=== PATIENT | male | born 1990 | race Caucasian/White ===

== ENCOUNTER 2017-03-02 11:09 | Inpatient (IN) | payer MEDICAID ==
[~2017-03-02] VITALS: Ht 165.1 cm; Wt 72.6 kg
[2017-03-02 11:11] VITALS: BP 148/94
--- NOTE | 2017-03-02 11:15 | NUR ---
PATIENT BIB FAMILY WITH C/O ALOC, ATE [employer] FOOD YESTERDAY ALOC WITH N/V/D, SMOKE WEED PER PT LAST WEEK THURSDAY;RX; TYLENOL . PT STAES HE FEELS WEAK.BILATERAL ARM MILD WEAKNESS;PT C/O OF THROAT/ABDOMINAL PAIN/HEADACHE;SKIN IS PINK/WARM/DRY; AAOX4 WITH EVEN AND STEADY GAIT; LUNGS CLEAR BL; HR EVEN AND REGULAR; PT DENIES ANY FEVER, CP, SOB, OR COUGH AT THIS TIME; PATIENT STATES PAIN OF 9/10 AT THIS TIME;PATIENT POSITIONED FOR COMFORT; HOB ELEVATED; BEDRAILS UP X2; BED DOWN. ALL MONITORS IN PLACED;
[2017-03-02 12:05] LABS: HEMATOCRIT 44.8 % (36-52); HEMOGLOBIN 15.3 g/dL (12.0-18.0); MEAN CORPUSCULAR HEMOGLOBIN 30 pg (27-31); MEAN CORPUSCULAR HGB CONC 34 g/dL (33-37); MEAN CORPUSCULAR VOLUME 88 fL (80-94); PLATELET COUNT (AUTO) 414 K/uL (140-450); RED BLOOD CELL COUNT(AUTO) 5.08 MIL/uL (4.20-6.10); RED CELL DISTRIBUTION WIDTH 12.4 % (11.6-13.7); WHITE BLOOD COUNT (AUTO) 29.1 K/uL (4.8-10.8)
[2017-03-02 12:07] LABS: ACETAMINOPHEN 0.8 ug/ml (10-30); ALANINE AMINOTRANSFERASE 58 U/L (12-78); ALKALINE PHOSPHATASE 114 U/L (46-116); ANION GAP 13.9 (8-16); ASPARTATE AMINOTRANSFERASE 17 U/L (15-37); CARBON DIOXIDE 28.4 mmol/L (21-32); CHLORIDE 102 mmol/L (98-107); CREATININE 1.1 mg/dL (0.6-1.3); GFR ARICAN-AMERICAN 106 mL/min (>90); GFR NON ARICAN-AMERICAN 87 mL/min (>90); GLUCOSE 122 mg/dL (74-106); POTASSIUM 3.3 mmol/L (3.5-5.1); SODIUM SERUM 141 mmol/L (136-145); TOTAL BILIRUBIN 1.2 mg/dL (0.0-1.0); TOTAL PROTEIN, SERUM 8.4 g/dL (6.4-8.2); UREA NITROGEN, BLOOD 8 mg/dL (7-18)
[2017-03-02 12:16] LABS: ALCOHOL, BLOOD < 3 mg/dL (<3); SALICYLATE < 2.8 mg/dL (2.8-20.0)
--- NOTE | 2017-03-02 12:26 | NUR ---
ASKED PT IF HE CAN A URINE SAMPLE;BUT PT STATES HE'S NOT ABLE AT THIS MOMENT.
[2017-03-02 12:36] LABS: BAND % (MANUAL) 16 % (0-8); LYMPHOCYTES % (MANUAL) 7 % (20-46); MONOCYTES % (MANUAL) 6 % (5-12); NEUTROPHILS % (MANUAL) 71 (43-65)
--- NOTE | 2017-03-02 13:10 | NUR ---
PATIENT HAVING CHILLS.TEMP. CHECKED 102.3 ORALLY.ERMD MADE AWARE
[2017-03-02] MEDS ORDERED: ACETAMINOPHEN EXTRA STRENGTH 500 MG TAB PO ONE (13:15)
[2017-03-02 14:13] LABS: AMPHETAMINE, URINE NEG. ng/ml (NEG <=1000); BARBITURATE, URINE NEG. ng/ml (NEG <=200); BENZODIAZEPINE, URINE NEG. ng/mL (NEG <=200); CANNABINOID, URINE POS. ng/mL (NEG <=50); COCAINE, URINE NEG. ng/mL (NEG <=300); OPIATE, URINE NEG. ng/mL (NEG <=2000); PHENCYCLIDINE SCREEN,URINE NEG. ng/mL (NEG <=25)
--- NOTE | 2017-03-02 14:14 | NUR ---
COOLING MEASURES DONE;
--- NOTE | 2017-03-02 14:29 | NUR ---
ALISON KAT AT BEDSIDE.
[2017-03-02] MEDS ORDERED: NACL 0.9% 2,000 ML IV ONE (14:35)
[2017-03-02] MEDS ORDERED: HYDROmorphone 1 MG/ML AMP IVP ONE ×2 (14:35→21:05)
[2017-03-02] MEDS ORDERED: ONDANSETRON 4 MG/2 ML VIAL IVP ONE ×2 (14:35→21:10)
--- NOTE | 2017-03-02 14:35 | NUR ---
ER MD VERBAL ORDER OF 4 MG ZOFRAN IVP;DILAUDID 1 MG IVP;NORMAL SALINE 1 L(BOLUS);RAPID STREP AND BLOOD CULTURE.
[2017-03-02] MEDS ORDERED: HYDROmorphone 1 MG/ML AMP ONE (14:38)
[2017-03-02] MEDS ORDERED: ONDANSETRON 4 MG/2 ML VIAL ONE (14:39)
[2017-03-02] MEDS ORDERED: cefTRIAXone 2,000 MG in DEXTROSE 5% 100 ML IV ONE (14:55)
[2017-03-02] MEDS ORDERED: cefTRIAXone 2,000 MG VIAL ONE (15:14)
--- NOTE | 2017-03-02 15:49 | NUR ---
pt went to ct scan accomapnied by tech
--- NOTE | 2017-03-02 16:15 | NUR ---
back from ct scan;no acute distress noted;will continue to monitor pt.
--- NOTE | 2017-03-02 17:21 | NUR ---
pt verbalizes "I'm Feeling better now"offered some juice and carackers;no acute distress noted;will continue to monitor pt.
--- NOTE | 2017-03-02 18:10 | NUR ---
REMIND ALISON KAT TO PUT THE ORDER OF [place] 10-325 FOR THE PT;ALISON KAT SAID "OKAY i WILL ENTER IT".
--- NOTE | 2017-03-02 18:15 | NUR ---
PT RESTING ON BED;FATHER AT BEDSIDE;NO ACUTE DISTRESS NOTED;WILL CONTINJE TO MONITOR PT .
[2017-03-02 18:43] LABS: APPEARANCE,URINE CLEAR (CLEAR); BILIRUBIN,URINE 1+ (NEGATIVE); BLOOD, URINE NEGATIVE (NEGATIVE); LEUKOCYTE ESTERASE ,URINE NEGATIVE (NEGATIVE); NITRITE, URINE NEGATIVE (NEGATIVE); PH,URINE 6.5 (5.0-9.0); PROTEIN,URINE 1+ (NEGATIVE); UGLUCOSE TRACE (NEGATIVE)
[2017-03-02 18:55] LABS: BACTERIA,URINE RARE /HPF (None Seen); COLOR,URINE AMBER (YELLOW); ICTOTEST NEGATIVE (NEGATIVE); RBC,URINE NONE SEEN /HPF (0-5); SQUAMOUS EPITHELIAL CELL,UR None Seen /LPF (0-3 (FEW)); WBC,URINE 0-5 (RARE) /HPF (0-5)
--- NOTE | 2017-03-02 19:19 | NUR ---
Pt report given to AMARA BREWSTER. Transfer of care at this time.
--- NOTE | 2017-03-02 19:20 | NUR ---
RECEIVED REPORT FROM DAY NURSE AMARA HICKEY FOR TRANSFER OF CARE.
--- NOTE | 2017-03-02 21:05 | NUR ---
PT CURRENT TEMP IS 102.9F ER MADE AWARE. WILL FOLLOW UP WITH ORDERS.
[2017-03-02] MEDS ORDERED: ZOLPIDEM 5 MG TAB PO PRN (21:15)
[2017-03-02] MEDS ORDERED: HYDROcodone/APAP 5/325 MG 1 TAB TAB PO PRN (21:15)
[2017-03-02] MEDS ORDERED: ALBUTEROL 0.083% 2.5 MG/3 ML NEBU IH PRN (21:15)
[2017-03-02] MEDS ORDERED: ACETAMINOPHEN 325 MG TAB PO PRN (21:15)
[2017-03-02] MEDS ORDERED: LORazepam 2 MG/ML VIAL IVP PRN (21:15)
[2017-03-02] MEDS ORDERED: MORPHINE SULFATE 2 MG/ML SYR IVP PRN (21:15)
[2017-03-02] MEDS ORDERED: ONDANSETRON 4 MG/2 ML VIAL IVP PRN (21:15)
[2017-03-02] MEDS ORDERED: ACETAMINOPHEN 325 MG TAB PO ONE (21:20)
[2017-03-02] MEDS ORDERED: POTASSIUM CHLORIDE 10 MEQ TABER PO SCH (21:25)
--- NOTE | 2017-03-02 21:50 | NUR ---
Patient will be admitted to care of DR CORONA. Admited to TELE. Will go to room 110A. Belongings list completed. Report to AMARA BURGER.
[2017-03-02 22:00] LABS: CHOL/HDL RATIO 3.5 (1-4.5)
[2017-03-02 22:09] LABS: FREE T4 (FREE THYROXINE) 1.2 ng/dL (0.76-1.46); THYROID STIMULATING HORMONE 0.43 uIU/mL (0.34-3.76)
[2017-03-02] MEDS: NACL 0.9% 1,000 ML IV SCH (22:55)
--- NOTE | 2017-03-02 23:14 | NUR ---
ADMITTED 26 YEARS OLD MALE FROM ER VIA [facility]. FAMILY AT BEDSIDE. ADMISSION ASSESSMENT AND HISTORY NURSING COMPLETED. ORIENTED TO ROOM AND UNIT ROUTINES. CALL LIGHT WITHIN REACH. PLAN OF CARE DISCUSSED WITH PATIENT AND FAMILY MEMBER, VERBALIZED UNDERSTANDING WELL.
--- NOTE | 2017-03-02 23:16 | NUR ---
COOLING MEASURES RENDERED. T-1005. REFUSED SCD, PATIENT IN AMBULATORY. SANDWICH GIVEN.
[2017-03-03 00:08] VITALS: BP 120/78
--- NOTE | 2017-03-03 00:09 | NUR ---
AFEBRILE NOW. AWAKE. JUST ATE FOOD FROM HOME. FAMILY JUST LEFT. NO COMPLAINS. CALL LIGHT WITHIN REACH.
--- NOTE | 2017-03-03 04:37 | NUR ---
MOVE ROOM 122A AMBULATORY. VITAL SIGNS STABLE. AFEBRILE. CALL LIGHT WITHIN REACH.
[2017-03-03 04:38] VITALS: BP 106/78
--- NOTE | 2017-03-03 07:18 | NUR ---
ENDORSED CARE AT BEDSIDE WITH BECCA MALONEY, PATIENT IN STABLE CONDITION.
--- NOTE | 2017-03-03 07:18 | NUR ---
RECEIVED REPORT FROM NIGHT NURSE, PT IS AAOX4, ON ROOM AIR, SKIN INTACT, IV TO RIGHT AC 20G INFUSING WELL, PT STATES NO PAIN AT THIS TIME. INITIAL ASSESSMENT COMPLETED, ALL SAFETY PRECAUTIONS MET. ALL NEEDS MET. CALL LIGHT WITHIN REACH. WILL CONTINUE TO MONITOR.
[2017-03-03 07:52] VITALS: BP 125/81
[2017-03-03] MEDS: LACTOBACILLUS RHAMNOSUS GG 1 EACH CAP PO SCH (08:34)
[2017-03-03] MEDS: BENZOCAINE/MENTHOL 1 LOZ MM PRN ×2 (08:34→16:28)
--- NOTE | 2017-03-03 08:35 | NUR ---
DUE MEDICATIONS GIVEN. PT TOLERATED WELL, PARENTS AT BEDSIDE, ALL NEEDS MET. CALL LIGHT WITHIN REACH. WILL CONTINUE TO MONITOR.
--- NOTE | 2017-03-03 09:18 | NUR ---
PATIENT HAS BEEN SCREENED AND CATEGORIZED LOW NUTRITION RISK. PATIENT WILL BE SEEN WITHIN 7 DAYS OF ADMISSION. 03/09/[address]
[2017-03-03] MEDS ORDERED: methylPREDNISolone SS 125 MG/2 ML VIAL IVP SCH (09:25)
[2017-03-03] MEDS ORDERED: ACETAMINOPHEN 325 MG TAB PO SCH (09:33)
[2017-03-03] MEDS ORDERED: ALBUTEROL SULFATE/IPRATROPIU 3 ML SOL IH PRN (09:35)
[2017-03-03] MEDS ORDERED: DEXAMETHASONE 10 MG/ML VIAL IVP SCH (09:36)
[2017-03-03] MEDS ORDERED: LIDOCAINE VISCOUS 2% 20 ML UDC PO PRN (09:50)
--- NOTE | 2017-03-03 10:05 | NUR ---
PT CURRENTLY SLEEPING. DAD AT BEDSIDE. ALL NEEDS MET. CALL LIGHT WITHIN REACH. WILL CONTINUE TO MONITOR.
[2017-03-03] MEDS: NACL 0.9% 1,000 ML IV SCH (11:21)
[2017-03-03 12:00] VITALS: BP 104/73
[2017-03-03] MEDS: PIPER/TAZO 3.375GM/D5W PREMIX 50 ML IV SCH ×3 (12:30→23:54)
--- NOTE | 2017-03-03 12:30 | NUR ---
DUE MEDICATIONS GIVEN. NO S/S OF DISTRESS NOTED. ALL NEEDS MET, FATHER AT BEDSIDE. WILL CONTINUE TO MONITOR.
--- NOTE | 2017-03-03 14:10 | NUR ---
PT RESTING IN BED, NO S/S OF DISTRESS NOTED. FAMILY AT BEDSIDE. FAMILY AT BEDSIDE. WILL CONTINUE TO MONITOR.
[2017-03-03] MEDS ORDERED: VANCOMYCIN PER PHARMACY MC PRN (15:30)
[2017-03-03 16:00] VITALS: BP 110/72
--- NOTE | 2017-03-03 16:20 | NUR ---
DUE MEDICATIONS GIVEN. PT RESTING IN BED, FAMILY AT BEDSIDE, ALL NEEDS MET. CALL LIGHT WITHIN REACH. WILL CONTINUE TO MONITOR.
[2017-03-03] MEDS: VANCOMYCIN 1GM/DEXT 5% PREMIX 200 ML IV SCH (16:45)
--- NOTE | 2017-03-03 19:16 | NUR ---
ENDORSED PLAN OF CARE TO NIGHT NURSE, PT IN STABLE CONDITION.
--- NOTE | 2017-03-03 19:20 | NUR ---
RECEIVED PT FROM DAY SHIFT NURSE ABISAI PT IS AAOX4 AMBULATORY, IV ON LEFT AC INFUSING WELL ON TELEMETRY SR;, RELATIVES AT BED SIDE INITIAL ASSESSMENT DONE
[2017-03-03 20:00] VITALS: BP 118/68
--- NOTE | 2017-03-03 22:00 | NUR ---
PT WATCHING TV NOT DISTRESS NOTED ON TELMETRY SR DENIES ANY PAIN
[2017-03-04] VITALS: BP 103/53
--- NOTE | 2017-03-04 01:00 | NUR ---
PT SLEEPING ON TELEMETRY SR REMAIN STABLE AT THIS TIME
[2017-03-04 04:00] VITALS: BP 110/69
[2017-03-04] MEDS: VANCOMYCIN 1GM/DEXT 5% PREMIX 200 ML IV SCH ×2 (04:32→17:56)
--- NOTE | 2017-03-04 05:11 | NUR ---
SPONGE BATH GIVEN , LINEN CHANGED ON TELEMETRY SR
[2017-03-04] MEDS: PIPER/TAZO 3.375GM/D5W PREMIX 50 ML IV SCH ×3 (05:46→17:34)
[2017-03-04 06:20] LABS: HEMATOCRIT 38.9 % (36-52); HEMOGLOBIN 13.4 g/dL (12.0-18.0); MEAN CORPUSCULAR HEMOGLOBIN 30 pg (27-31); MEAN CORPUSCULAR HGB CONC 34 g/dL (33-37); MEAN CORPUSCULAR VOLUME 88 fL (80-94); PLATELET COUNT (AUTO) 396 K/uL (140-450); RED BLOOD CELL COUNT(AUTO) 4.43 MIL/uL (4.20-6.10); RED CELL DISTRIBUTION WIDTH 12.9 % (11.6-13.7)
[2017-03-04 06:41] LABS: MAGNESIUM 1.9 mg/dL (1.8-2.4); PHOSPHORUS 4.2 mg/dL (2.5-4.9)
--- NOTE | 2017-03-04 06:48 | NUR ---
PT RESTING O;;N; BED AM;BULATORY; DENIES ANY PAIN ON TELEMETRY SR
[2017-03-04 06:50] LABS: ANION GAP 11.8 (8-16); CALCIUM 9.2 mg/dL (8.5-10.1); CARBON DIOXIDE 27.9 mmol/L (21-32); CREATININE 0.9 mg/dL (0.6-1.3); POTASSIUM 3.7 mmol/L (3.5-5.1)
[2017-03-04] MEDS: NACL 0.9% 1,000 ML IV SCH ×3 (06:55→13:51)
[2017-03-04 06:56] LABS: BAND % (MANUAL) 6 % (0-8); LYMPHOCYTES % (MANUAL) 8 % (20-46); MONOCYTES % (MANUAL) 3 % (5-12); NEUTROPHILS % (MANUAL) 83 (43-65); PLATELET ESTIMATE ADEQUATE
[2017-03-04 08:00] VITALS: BP 122/81
[2017-03-04 08:36] LABS: T4 (THYROXINE) 8.1 ug/dL (4.5 - 12.0)
[2017-03-04] MEDS: LACTOBACILLUS RHAMNOSUS GG 1 EACH CAP PO SCH (08:38)
[2017-03-04 08:44] LABS: HEMOGLOBIN A1C 5.2 % (4.8-5.6)
--- NOTE | 2017-03-04 08:46 | NUR ---
DUE MEDICATIONS GIVEN, MOM AT BEDSIDE, ALL NEEDS MET. CALL LIGHT WITHIN REACH. WILL CONTINUE TO MONITOR.
--- NOTE | 2017-03-04 10:35 | NUR ---
CHECKED IN ON PT, PT RESTING IN BED. ALL NEEDS MET. CALL LIGHT WITHIN REACH.
[2017-03-04 12:00] VITALS: BP 110/78
--- NOTE | 2017-03-04 12:02 | NUR ---
DUE MEDICATION GIVEN, PT CURRENTLY RESTING IN BED, NO S/S OF DISTRESS. ALL NEEDS MET. CALL LIGHT WITHIN REACH. WILL CONTINUE TO MONITOR.
--- NOTE | 2017-03-04 14:14 | NUR ---
PT CURRENTLY RESTING IN BED, NO S/S DISTRESS NOTED. CALL LIGHT WITHIN REACH. WILL CONTINUE TO MONITOR.
[2017-03-04 16:00] VITALS: BP 110/53
--- NOTE | 2017-03-04 16:35 | NUR ---
PT AWAKE, RESTING IN BED, NO S/S OF PAIN NOR DISTRESS. ALL NEEDS MET. CALL LIGHT WITHIN REACH.
--- NOTE | 2017-03-04 19:15 | NUR ---
ENDORSED PLAN OF CARE TO NIGHT NURSE, PT IN STABLE CONDITION, FAMILY AT BEDSIDE.
--- NOTE | 2017-03-04 19:20 | NUR ---
RECEIVED PT FROM ALEJANDRA RN PT IS AAOX4 AMBULATO;RY, ON TELEMTRY SR , IV ON LEFT AC INFUSING WELL , RELATIVES AT BED SIDE INITIAL ASSESSMENT DONE
--- NOTE | 2017-03-04 19:50 | NUR ---
PT WALKING ON THE [place],SAT 100% ON ROOM AIR
[2017-03-04 20:00] VITALS: BP 109/69
--- NOTE | 2017-03-04 22:00 | NUR ---
PT VOIDING WELL, ON TELE SR DENIES ANY PAIN
[2017-03-05] VITALS: BP 101/53
[2017-03-05] MEDS: PIPER/TAZO 3.375GM/D5W PREMIX 50 ML IV SCH ×3 (00:29→12:18)
--- NOTE | 2017-03-05 01:26 | NUR ---
PT REMAIN STABLE DENIES ANY PAIN ;, IV ON LEFT AC INFUSING WELL ON TELEMETRY SR
[2017-03-05] MEDS: NACL 0.9% 1,000 ML IV SCH ×2 (02:31→14:55)
[2017-03-05 04:00] VITALS: BP 96/54
--- NOTE | 2017-03-05 04:00 | NUR ---
SPONGE BATH GIVEN,LINEN CHANGED PT ON TELMETRY SB DENIES ANY PAIN OR DISCOMFORT,
[2017-03-05] MEDS ORDERED: VANCOMYCIN 1,250 MG in NACL 0.9% 250 ML IV SCH ×2 (05:00→17:00)
[2017-03-05 06:14] LABS: BASOPHILS # (AUTO) 0.3 K/uL (0.00-0.22); BASOPHILS % (AUTO) 3.2 % (0.0-2.0); EOSINOPHILS # (AUTO) 0.2 K/uL (0-0.4); EOSINOPHILS % (AUTO) 1.6 % (0.0-4.0); HEMATOCRIT 38.2 % (36-52); LYMPHOCYTES # (AUTO) 3.9 K/uL (2.0-11.5); MEAN CORPUSCULAR HEMOGLOBIN 30 pg (27-31); MEAN CORPUSCULAR HGB CONC 34 g/dL (33-37); MEAN CORPUSCULAR VOLUME 89 fL (80-94); MONOCYTES # (AUTO) 0.9 K/uL (0.8-1.0); MONOCYTES % (AUTO) 8.5 % (1.7-9.3); NEUTROPHILS # (AUTO) 5.6 K/uL (1.8-7.7); NEUTROPHILS % (AUTO) 50.7 % (42.2-75.2); PLATELET COUNT (AUTO) 469 K/uL (140-450); RED BLOOD CELL COUNT(AUTO) 4.31 MIL/uL (4.20-6.10); RED CELL DISTRIBUTION WIDTH 13.1 % (11.6-13.7); WHITE BLOOD COUNT (AUTO) 10.9 K/uL (4.8-10.8)
--- NOTE | 2017-03-05 06:22 | NUR ---
PT VOIDING WELL AAOX4 AMBULATORY DENIES ANY PAIN OR DISCOMFORT ON TELEMETRY SR
[2017-03-05 06:58] LABS: ANION GAP 12.1 (8-16); CALCIUM 8.9 mg/dL (8.5-10.1); CARBON DIOXIDE 28.9 mmol/L (21-32)
[2017-03-05 07:02] LABS: PHOSPHORUS 3.4 mg/dL (2.5-4.9)
--- NOTE | 2017-03-05 07:30 | NUR ---
RECEIVED PT ON BED AAOX4. NO SOB NOTED. NO C/O PAIN AT THIS TIME. IV TO LT AC PATENT AND INTACT. CHEST CLEAR. ABDOMEN SOFT, BOWEL SOUNDS PRESENT. NO EDEMA NOTED. INSTRUCTED PT TO CALL FOR ASSISTANCE, CALL LIGHT WITHIN REACH. NPO MAINTAINED FOR PROCEDURE (CT SCAN OF NECK WITH IV CONTRAST). PT VERBALIZED UNDERSTANDING.
[2017-03-05 08:00] VITALS: BP 112/65
[2017-03-05] MEDS: LACTOBACILLUS RHAMNOSUS GG 1 EACH CAP PO SCH (09:00)
--- NOTE | 2017-03-05 09:06 | NUR ---
ENTRY FOR 03/04/17. [facility] WILL NOT ACCEPT PT FOR ADMISSION UNLESS THERE IS AN ACCEPTING PHYSICIAN. INFORMED DR CORONA AND HE WILL TRY TO FIND AN ADMITTING. [address] [facility] [phone] AND PROVIDED INFORMATION INCLUDING PT HAS HOSPITAL PE. PER RISA SHE IS REQUESTING THAT APPLICATION FOR PRUCOL NEEDS TO BE INITIATED BEFORE THEY WILL CONSIDER PT FOR ADMIT. WILL FOLLOW UP WITH [facility] TOMORROW AND WITH PT TO SEE IF HE IS IN AGREEMENT. INFORMED DR CORONA.
[2017-03-05] MEDS ORDERED: DEXAMETHASONE 4 MG/ML VIAL IVP SCH (10:30)
[2017-03-05] MEDS ORDERED: IBUPROFEN 800 MG TAB PO SCH ×3 (10:30→17:00)
--- NOTE | 2017-03-05 10:30 | NUR ---
CT SCAN OF NECK IS SCHEDULED AT 1400 HRS. PER MARANDA, DRYING TUNNEL OPERATOR, PT CAN HAVE LATE BREAKFAST AND NPO FOR LUNCH. PT VERBALIZED UNDERSTANDING.
[2017-03-05 12:00] VITALS: BP 110/69
--- NOTE | 2017-03-05 13:00 | NUR ---
PT RESTING. NO [id number] MADE. NPO MAINTAINED FOR PROCEDURE.
--- NOTE | 2017-03-05 14:15 | NUR ---
PT BACK FROM CT SCAN DEPARTMENT IN STABLE CONDITION
[2017-03-05 16:00] VITALS: BP 110/64
[2017-03-05] MEDS ORDERED: METR500T1 PO (17:14)
[2017-03-05] MEDS ORDERED: IBUP800T99 PO (17:26)
[2017-03-05] MEDS ORDERED: LACT10CA PO (17:26)
--- NOTE | 2017-03-05 18:55 | NUR ---
DISCHARGE INSTRUCTIONS AND PRESCRIPTIONS GIVEN TO PT WHICH VERBALIZE FULL UNDERSTANDING OF THE INSTRUCTIONS GIVEN AND THE NEED TO FOLLOW UP WITH DR. RAI'S GROUP ON 03/10/2017 AT 083O. ARM BANDS AND IV REMOVED, CANNULA TIP INTACT.
--- NOTE | 2017-03-05 19:10 | NUR ---
PT ESCORTED TO THE FRONT LOBBY IN STABLE CONDITION. AMBULATORY. PT IS DISCHARGED HOME WITH MOTHER.
== END 2017-03-05 19:10 | disposition home or self-care (01) | DRG 720 ==
LOC: MED 11:09 → MTU 21:22
PROVIDERS: ADMIT Family Medicine; ATTEND Family Medicine
DX: A41.9 Sepsis, unspecified organism (principal); N17.0 Acute kidney failure with tubular necrosis; E87.6 Hypokalemia; F12.90 Cannabis use, unspecified, uncomplicated; Z53.29 Procedure and treatment not carried out because of patient's decision for other reasons; J36 Peritonsillar abscess; Z90.49 Acquired absence of other specified parts of digestive tract
CPT/HCPCS: 36415; 70460; 70491; 71010; 80048; 80053; 80202; 80305; 81001; 82948; 83036; 83605; 83735; 84100; 84436; 84439; 84443; 84479; 85025; 87040; 87081; 93005; 96361; 96365; 96366; 96375; 96376; 99285; G0480; G0482; J0696; J1100; J1170; J2405; J2543; J3370; J7030; J7060; Q0092; Q9967